=== PATIENT | male | born 1935 | race Caucasian/White ===

== ENCOUNTER 2022-02-08 13:05 | Inpatient (IN) | payer MEDICARE, OTHER ==
[~2022-02-08] VITALS: Ht 172.7 cm; Wt 89.8 kg
[~2022-02-08 13:05] MED LIST: ARICEPT5 MG PO; BUPROPION HCL100 MG PO; DOXAZOSIN MESYLA2 MG PO; FLECTOR1 EACH PO; GABAPENTIN300 MG PO; TAMSULOSIN HCL0.4 MG PO; WELLBUTRIN75 M1 PO; [UNRECOGNIZED DRUG - REMARK]
[2022-02-08] MEDS ORDERED: METRONIDAZOLE 500MG/NS 100ML 100 ML IV ONE (13:26)
[2022-02-08] MEDS ORDERED: CEFTRIAXONE 1 GM VIAL IV SCH (13:30)
[2022-02-08 13:35] LABS: BASOPHILS # (AUTO) 0.1 (0.0-0.1); BASOPHILS % 0.3 % (0.0-1.0); EOSINOPHILS # (AUTO) 0.1 (0.0-0.4); EOSINOPHILS % 0.3 % (0.0-6.0); HEMATOCRIT 30.2 % (38.2-49.6); HEMOGLOBIN 10.8 g/dL (14.0-18.0); LYMPHOCYTES # (AUTO) 0.3 (1.0-3.2); LYMPHOCYTES % 1.2 % (18.0-39.1); MEAN CORPUSCULAR HEMOGLOBIN 33.5 pg (28-32); MEAN CORPUSCULAR HGB CONC 35.8 g/dL (31-35); MEAN CORPUSCULAR VOLUME 93.8 fL (81-99); MONOCYTES # (AUTO) 0.6 (0.2-0.8); NEUTROPHILS % 91.7 % (38.7-80.0); PLATELET COUNT 430 x10e3/uL (140-360); RED BLOOD COUNT 3.22 x10e6/uL (4.3-5.7); RED CELL DISTRIBUTION WIDTH 14.1 % (11.7-14.4)
[2022-02-08] MEDS ORDERED: SODIUM CHLORIDE 0.9% 1000ML 1,000 ML IV ONE (13:45)
[2022-02-08 13:51] LABS: ALBUMIN 2.9 g/dL (3.5-5.0); ALBUMIN/GLOBULIN RATIO 0.6 (0.8-2.0); ANION GAP 18.8 mmol/L (8-16); CALCIUM 9.2 mg/dL (8.4-10.2); CREATININE, SERUM 1.96 mg/dL (0.72-1.25)
[2022-02-08 13:53] LABS: POTASSIUM 4.8 mmol/L (3.5-5.1)
[2022-02-08 14:06] LABS: CLARITY,URINE CLOUDY (CLEAR); COLOR,URINE ORANGE (YELLOW); KETONES,URINE TRACE (NEGATIVE); LEUKOCYTE ESTERASE ,URINE NEGATIVE (NEGATIVE); NITRITE,URINE NEGATIVE (NEGATIVE); PROTEIN,URINE DIPSTICK 1+ (NEGATIVE)
[2022-02-08 14:08] LABS: AMORPHOUS SEDIMENT,URINE MANY (FEW)
[2022-02-08 14:09] LABS: BACTERIA,URINE MODERATE /HPF; EPITHELIAL CELLS,URINE FEW /LPF; RBC,URINE 0-5 /HPF (0-5); WBC,URINE (MAN) 0-5 /HPF (0-5)
[2022-02-08 14:51] LABS: INR 1.16; PROTHROMBIN TIME 15.7 seconds (11.9-14.5)
[2022-02-08 14:52] LABS: PARTIAL THROMBOPLASTIN TIME 30.8 seconds (23.8-35.5)
[2022-02-08] MEDS ORDERED: IOPAMIDOL 370 MG/ML 100 ML INFUS..BTL INJ ONE (14:59)
[2022-02-08 15:56] LABS: BAND NEUTROPHILS % (MANUAL) 11 %; LYMPHOCYTES % (MANUAL) 2 % (19-48); METAMYELOCYTES % (MANUAL) 1 % (0-0); MONOCYTES % (MANUAL) 4 % (3.4-9.0); MYELOCYTES % (MANUAL) 1 % (0-0); NEUTROPHILS % (MANUAL) 81 % (40-74)
[2022-02-08 15:57] LABS: PLATELET ESTIMATE SLIGHTLY INCREASED; PLATELET MORPHOLOGY COMMENT NORMAL
[2022-02-08] MEDS ORDERED: SODIUM CHLORIDE 0.9% 1000ML 2,390 ML IV ONE (16:15)
[2022-02-08] MEDS: SODIUM CHLORIDE 0.9% 1000ML 1,000 ML IV SCH (20:05)
[2022-02-08] MEDS: Morphine 2mg Syringe 2 MG/ML SYR IV PRN (20:18)
[2022-02-08] MEDS: ONDANSETRON HCL INJ 2MG/ML 2ML 2 MG/ML VIAL IV PRN (20:19)
[2022-02-08] MEDS: METRONIDAZOLE 500MG/NS 100ML 100 ML IV SCH (22:18)
[2022-02-08] MEDS ORDERED: ACETAMINOPHEN 325 MG TAB PO PRN (23:45)
[2022-02-08] MEDS ORDERED: ACETAMINOPHEN 325 MG TAB ONE (23:53)
[2022-02-09] VITALS (7 sets, daily range): BP systolic 149–172; BP diastolic 68–92
[2022-02-09] MEDS: SODIUM CHLORIDE 0.9% 1000ML 1,000 ML IV SCH ×3 (01:45→10:19)
[2022-02-09] MEDS: Morphine 2mg Syringe 2 MG/ML SYR IV PRN (02:54)
[2022-02-09 05:24] LABS: BASOPHILS # (AUTO) 0.1 (0.0-0.1); BASOPHILS % 0.2 % (0.0-1.0); HEMATOCRIT 23.2 % (38.2-49.6); HEMOGLOBIN 8.7 g/dL (14.0-18.0); LYMPHOCYTES # (AUTO) 0.6 (1.0-3.2); MEAN CORPUSCULAR HEMOGLOBIN 36.6 pg (28-32); MEAN CORPUSCULAR HGB CONC 37.5 g/dL (31-35); MEAN CORPUSCULAR VOLUME 97.5 fL (81-99); MONOCYTES # (AUTO) 0.5 (0.2-0.8); MONOCYTES % 1.6 % (4.4-11.3); NEUTROPHILS # (AUTO) 28.7 (2.1-6.9); NEUTROPHILS % 92.1 % (38.7-80.0); PLATELET COUNT 465 x10e3/uL (140-360); RED BLOOD COUNT 2.38 x10e6/uL (4.3-5.7); RED CELL DISTRIBUTION WIDTH 14.3 % (11.7-14.4)
[2022-02-09] MEDS: METRONIDAZOLE 500MG/NS 100ML 100 ML IV SCH ×3 (05:30→23:55)
[2022-02-09 05:59] LABS: INR 1.35; PROTHROMBIN TIME 17.6 seconds (11.9-14.5)
[2022-02-09 06:00] LABS: PARTIAL THROMBOPLASTIN TIME 34.9 seconds (23.8-35.5)
[2022-02-09 06:15] LABS: ALBUMIN 2.6 g/dL (3.5-5.0); ALBUMIN/GLOBULIN RATIO 0.8 (0.8-2.0); ANION GAP 18.2 mmol/L (8-16); CALCIUM 8.3 mg/dL (8.4-10.2); CREATININE, SERUM 1.45 mg/dL (0.72-1.25); POTASSIUM 4.2 mmol/L (3.5-5.1)
[2022-02-09] MEDS: Morphine 4mg INJECTION 4 MG/ML INJ IV PRN ×2 (06:18→12:55)
[2022-02-09 08:01] LABS: BAND NEUTROPHILS % (MANUAL) 5 %; MONOCYTES % (MANUAL) 2 % (3.4-9.0); NEUTROPHILS % (MANUAL) 93 % (40-74)
[2022-02-09 08:02] LABS: PLATELET ESTIMATE ADEQUATE; RBC MORPHOLOGY COMMENT NORMAL
[2022-02-09] MEDS ORDERED: DOXAZOSIN MESYLA4 MG PO (09:44)
[2022-02-09] MEDS ORDERED: SODIUM CHLORIDE 0.9% 250ML 0 ML ONE (09:47)
[2022-02-09] MEDS: CEFTRIAXONE 2 GM in SODIUM CHLORIDE 0.9% 100 ML IV SCH (10:19)
[2022-02-09] MEDS ORDERED: GADOBENATE DIMEGLUMINE 1 ML IV ONE (12:39)
[2022-02-09] MEDS: ONDANSETRON HCL INJ 2MG/ML 2ML 2 MG/ML VIAL IV PRN (12:55)
[2022-02-09] MEDS: HYDROMORPHONE 1MG/1ML INJ IV PRN ×2 (14:59→20:40)
[2022-02-09] MEDS: ACETAMINOPHEN 325 MG TAB PO PRN (16:31)
[2022-02-10] VITALS (10 sets, daily range): BP systolic 141–159; BP diastolic 69–96
[2022-02-10] MEDS ORDERED: METRONIDAZOLE 500MG/NS 100ML 100 ML IV ONE (01:00)
[2022-02-10 01:40] LABS: % IRON SATURATION 9 % (15-50); IRON 13 ug/dL (65-175); TOTAL IRON BINDING CAPACITY 140 ug/dL (261-478); TRANSFERRIN 100 mg/dL (174-364)
[2022-02-10] MEDS: HYDROMORPHONE 1MG/1ML INJ IV PRN ×3 (02:22→17:57)
[2022-02-10] MEDS: SODIUM CHLORIDE 0.9% 1000ML 1,000 ML IV SCH ×3 (05:03→17:45)
[2022-02-10 05:49] LABS: BASOPHILS # (AUTO) 0.1 (0.0-0.1); BASOPHILS % 0.3 % (0.0-1.0); HEMATOCRIT 24.4 % (38.2-49.6); HEMOGLOBIN 8.7 g/dL (14.0-18.0); LYMPHOCYTES # (AUTO) 0.6 (1.0-3.2); LYMPHOCYTES % 2.1 % (18.0-39.1); MEAN CORPUSCULAR HEMOGLOBIN 32.7 pg (28-32); MEAN CORPUSCULAR HGB CONC 35.7 g/dL (31-35); MEAN CORPUSCULAR VOLUME 91.7 fL (81-99); MONOCYTES # (AUTO) 0.7 (0.2-0.8); MONOCYTES % 2.5 % (4.4-11.3); NEUTROPHILS # (AUTO) 25.8 (2.1-6.9); PLATELET COUNT 509 x10e3/uL (140-360); RED BLOOD COUNT 2.66 x10e6/uL (4.3-5.7); RED CELL DISTRIBUTION WIDTH 14.2 % (11.7-14.4)
[2022-02-10] MEDS: METRONIDAZOLE 500MG/NS 100ML 100 ML IV SCH ×3 (06:08→16:50)
[2022-02-10 06:25] LABS: ALBUMIN 2.8 g/dL (3.5-5.0); ALBUMIN/GLOBULIN RATIO 0.8 (0.8-2.0); ANION GAP 13.9 mmol/L (8-16); CALCIUM 8.9 mg/dL (8.4-10.2); CREATININE, SERUM 1.26 mg/dL (0.72-1.25); POTASSIUM 3.9 mmol/L (3.5-5.1)
[2022-02-10] MEDS: CEFTRIAXONE 2 GM in SODIUM CHLORIDE 0.9% 100 ML IV SCH (07:57)
[2022-02-10 08:02] LABS: ANION GAP 17.1 mmol/L (8-16); CALCIUM 8.6 mg/dL (8.4-10.2); CREATININE, SERUM 1.22 mg/dL (0.72-1.25); POTASSIUM 4.1 mmol/L (3.5-5.1)
[2022-02-10] MEDS: ACETAMINOPHEN 325 MG TAB PO PRN ×2 (08:32→16:50)
[2022-02-10 08:52] LABS: LYMPHOCYTES % (MANUAL) 1 % (19-48); MONOCYTES % (MANUAL) 1 % (3.4-9.0); NEUTROPHILS % (MANUAL) 98 % (40-74); PLATELET ESTIMATE SLIGHTLY INCREASED; PLATELET MORPHOLOGY COMMENT NORMAL; RBC MORPHOLOGY COMMENT NORMAL; TOXIC GRANULATION SLIGHT
[2022-02-10] MEDS ORDERED: MIDAZOLAM HCL 2 MG/2 ML VIAL ONE (15:22)
[2022-02-10] MEDS ORDERED: SODIUM CHLORIDE 0.9% 250ML 250 ML ONE (15:22)
[2022-02-10] MEDS ORDERED: FENTANYL CITRATE/PF 100MCG/2 ML INJ ONE (15:22)
[2022-02-10 16:22] LABS: BODY FLUID APPEARANCE TURBID; BODY FLUID TYPE LIVER ABSCESS
[2022-02-10] MEDS: MELATONIN 5 MG TABLET PO SCH (20:11)
[2022-02-11] VITALS (8 sets, daily range): BP systolic 159–179; BP diastolic 72–92
[2022-02-11] MEDS: METRONIDAZOLE 500MG/NS 100ML 100 ML IV SCH ×4 (00:16→17:44)
[2022-02-11] MEDS: HYDROMORPHONE 1MG/1ML INJ IV PRN ×4 (01:40→18:19)
[2022-02-11] MEDS: SODIUM CHLORIDE 0.9% 1000ML 1,000 ML IV SCH ×4 (04:17→18:26)
[2022-02-11 06:17] LABS: BASOPHILS # (AUTO) 0.1 (0.0-0.1); BASOPHILS % 0.3 % (0.0-1.0); EOSINOPHILS % 0.2 % (0.0-6.0); HEMATOCRIT 23.3 % (38.2-49.6); HEMOGLOBIN 8.3 g/dL (14.0-18.0); LYMPHOCYTES # (AUTO) 0.7 (1.0-3.2); LYMPHOCYTES % 3.2 % (18.0-39.1); MEAN CORPUSCULAR HEMOGLOBIN 32.9 pg (28-32); MEAN CORPUSCULAR HGB CONC 35.6 g/dL (31-35); MEAN CORPUSCULAR VOLUME 92.5 fL (81-99); MONOCYTES # (AUTO) 0.9 (0.2-0.8); MONOCYTES % 4.1 % (4.4-11.3); NEUTROPHILS # (AUTO) 18.8 (2.1-6.9); NEUTROPHILS % 86.8 % (38.7-80.0); PLATELET COUNT 540 x10e3/uL (140-360); RED BLOOD COUNT 2.52 x10e6/uL (4.3-5.7); RED CELL DISTRIBUTION WIDTH 14.6 % (11.7-14.4)
[2022-02-11 06:39] LABS: ANION GAP 14.9 mmol/L (8-16); CALCIUM 8.9 mg/dL (8.4-10.2); CREATININE, SERUM 1.09 mg/dL (0.72-1.25); POTASSIUM 3.9 mmol/L (3.5-5.1)
[2022-02-11] MEDS: CEFTRIAXONE 2 GM in SODIUM CHLORIDE 0.9% 100 ML IV SCH (09:43)
[2022-02-11 10:06] LABS: BAND NEUTROPHILS % (MANUAL) 1 %; LYMPHOCYTES % (MANUAL) 4 % (19-48); MONOCYTES % (MANUAL) 4 % (3.4-9.0); NEUTROPHILS % (MANUAL) 91 % (40-74)
[2022-02-11 10:07] LABS: PLATELET ESTIMATE SLIGHTLY INCREASED; PLATELET MORPHOLOGY COMMENT NORMAL; RBC MORPHOLOGY COMMENT NORMAL
[2022-02-11] MEDS: ACETAMINOPHEN 325 MG TAB PO PRN (17:47)
[2022-02-11] MEDS: MELATONIN 5 MG TABLET PO SCH (21:20)
[2022-02-11] MEDS: LORAZEPAM INJ 2 MG/ML VIAL IV PRN (22:09)
[2022-02-12] VITALS (7 sets, daily range): BP systolic 149–177; BP diastolic 83–96
[2022-02-12] MEDS: METRONIDAZOLE 500MG/NS 100ML 100 ML IV SCH ×4 (00:05→17:12)
[2022-02-12] MEDS ORDERED: DEXTROSE 5% 1,000 ML IV SCH (04:15)
[2022-02-12] MEDS: LORAZEPAM INJ 2 MG/ML VIAL IV PRN ×2 (04:47→19:28)
[2022-02-12 07:13] LABS: BASOPHILS # (AUTO) 0.1 (0.0-0.1); BASOPHILS % 0.5 % (0.0-1.0); EOSINOPHILS # (AUTO) 0.1 (0.0-0.4); EOSINOPHILS % 0.4 % (0.0-6.0); HEMATOCRIT 25.7 % (38.2-49.6); HEMOGLOBIN 9.1 g/dL (14.0-18.0); LYMPHOCYTES # (AUTO) 0.9 (1.0-3.2); LYMPHOCYTES % 5.1 % (18.0-39.1); MEAN CORPUSCULAR HEMOGLOBIN 32.9 pg (28-32); MEAN CORPUSCULAR HGB CONC 35.4 g/dL (31-35); MEAN CORPUSCULAR VOLUME 92.8 fL (81-99); MONOCYTES # (AUTO) 1.2 (0.2-0.8); MONOCYTES % 6.2 % (4.4-11.3); NEUTROPHILS % 81.2 % (38.7-80.0); PLATELET COUNT 625 x10e3/uL (140-360); RED BLOOD COUNT 2.77 x10e6/uL (4.3-5.7); RED CELL DISTRIBUTION WIDTH 14.9 % (11.7-14.4)
[2022-02-12 07:35] LABS: ALBUMIN 2.6 g/dL (3.5-5.0); ALBUMIN/GLOBULIN RATIO 0.7 (0.8-2.0); ANION GAP 12.8 mmol/L (8-16); CALCIUM 8.7 mg/dL (8.4-10.2); CREATININE, SERUM 0.94 mg/dL (0.72-1.25); POTASSIUM 3.8 mmol/L (3.5-5.1)
[2022-02-12] MEDS: CEFTRIAXONE 2 GM in SODIUM CHLORIDE 0.9% 100 ML IV SCH (09:34)
[2022-02-12] MEDS: HYDROMORPHONE 1MG/1ML INJ IV PRN ×3 (10:08→20:40)
[2022-02-12] MEDS ORDERED: FUROSEMIDE INJ 10 MG/ML 2 ML VIAL IV ONE (15:30)
[2022-02-12] MEDS ORDERED: METOPROLOL TARTRATE INJ 1 MG/ML VIAL IV ONE (16:15)
[2022-02-12] MEDS: MELATONIN 5 MG TABLET PO SCH (21:00)
[2022-02-13] VITALS (40 sets, daily range): BP systolic 108–188; BP diastolic 65–167
[2022-02-13] MEDS: HYDROMORPHONE 1MG/1ML INJ IV PRN ×5 (01:00→21:02)
[2022-02-13] MEDS: METRONIDAZOLE 500MG/NS 100ML 100 ML IV SCH ×4 (01:00→17:55)
[2022-02-13 06:45] LABS: BASOPHILS # (AUTO) 0.1 (0.0-0.1); BASOPHILS % 0.6 % (0.0-1.0); HEMATOCRIT 28.5 % (38.2-49.6); LYMPHOCYTES % 4.1 % (18.0-39.1); MEAN CORPUSCULAR HEMOGLOBIN 32.9 pg (28-32); MEAN CORPUSCULAR HGB CONC 35.1 g/dL (31-35); MEAN CORPUSCULAR VOLUME 93.8 fL (81-99); MONOCYTES # (AUTO) 1.2 (0.2-0.8); MONOCYTES % 4.9 % (4.4-11.3); NEUTROPHILS # (AUTO) 20.5 (2.1-6.9); PLATELET COUNT 648 x10e3/uL (140-360); RED BLOOD COUNT 3.04 x10e6/uL (4.3-5.7); RED CELL DISTRIBUTION WIDTH 15.9 % (11.7-14.4)
[2022-02-13 07:05] LABS: ALBUMIN 2.1 g/dL (3.5-5.0); ALBUMIN/GLOBULIN RATIO 0.5 (0.8-2.0); ANION GAP 15.3 mmol/L (8-16); CALCIUM 8.8 mg/dL (8.4-10.2); CREATININE, SERUM 2.14 mg/dL (0.72-1.25); POTASSIUM 3.3 mmol/L (3.5-5.1)
[2022-02-13 08:13] LABS: LYMPHOCYTES % (MANUAL) 3 % (19-48); MONOCYTES % (MANUAL) 6 % (3.4-9.0); MYELOCYTES % (MANUAL) 2 % (0-0); NEUTROPHILS % (MANUAL) 89 % (40-74); PLATELET ESTIMATE SLIGHTLY INCREASED; PLATELET MORPHOLOGY COMMENT NORMAL; RBC MORPHOLOGY COMMENT NORMAL
[2022-02-13] MEDS: CEFTRIAXONE 2 GM in SODIUM CHLORIDE 0.9% 100 ML IV SCH (08:40)
[2022-02-13] MEDS ORDERED: NYSTATIN 100,000 UNITS/GM CRM 30GM TUBE TOP PRN (10:15)
[2022-02-13] MEDS: NYSTATIN 100,000 UNITS/GM CRM 30GM TUBE TOP SCH (11:28)
[2022-02-13] MEDS ORDERED: METOPROLOL TARTRATE INJ 1 MG/ML VIAL IV ONE ×3 (11:30→18:45)
[2022-02-13] MEDS ORDERED: DIGOXIN INJ 0.25 MG/ML 2 ML AMP IV ONE (12:00)
[2022-02-13] MEDS ORDERED: AMIODARONE HCL 150 MG/100 ML BAG IV ONE (13:45)
[2022-02-13] MEDS ORDERED: AMIODARONE 900MG 500 ML IV SCH (14:00)
[2022-02-13] MEDS ORDERED: SODIUM CHLORIDE 0.45% 500 ML IV SCH (14:00)
[2022-02-13] MEDS ORDERED: AMIODARONE HCL 100 ML IV ONE (14:00)
[2022-02-13] MEDS ORDERED: MIDAZOLAM HCL 2 MG/2 ML VIAL IV STA (14:24)
[2022-02-13] MEDS ORDERED: SODIUM CHLORIDE 0.45% 1,000 ML IV ONE (15:00)
[2022-02-13 15:53] LABS: ALBUMIN/GLOBULIN RATIO 0.5 (0.8-2.0); ANION GAP 16.4 mmol/L (8-16); CALCIUM 8.5 mg/dL (8.4-10.2); CREATININE, SERUM 2.74 mg/dL (0.72-1.25); POTASSIUM 3.4 mmol/L (3.5-5.1)
[2022-02-13] MEDS: AMIODARONE 900MG 500 ML IV SCH (20:15)
[2022-02-13] MEDS: MELATONIN 5 MG TABLET PO SCH (21:00)
[2022-02-13] MEDS: ONDANSETRON HCL INJ 2MG/ML 2ML 2 MG/ML VIAL IV PRN (21:02)
[2022-02-14] VITALS (47 sets, daily range): BP systolic 116–176; BP diastolic 55–133
[2022-02-14] MEDS: METRONIDAZOLE 500MG/NS 100ML 100 ML IV SCH ×4 (00:27→17:19)
[2022-02-14] MEDS: HYDROMORPHONE 1MG/1ML INJ IV PRN ×5 (01:30→21:45)
[2022-02-14] MEDS: DEXTROSE 5% 1,000 ML IV SCH ×2 (05:04→15:00)
[2022-02-14 06:27] LABS: BASOPHILS # (AUTO) 0.1 (0.0-0.1); BASOPHILS % 0.4 % (0.0-1.0); EOSINOPHILS % 0.1 % (0.0-6.0); HEMOGLOBIN 8.9 g/dL (14.0-18.0); LYMPHOCYTES # (AUTO) 1.2 (1.0-3.2); MEAN CORPUSCULAR HEMOGLOBIN 31.6 pg (28-32); MEAN CORPUSCULAR VOLUME 95.7 fL (81-99); MONOCYTES # (AUTO) 1.2 (0.2-0.8); NEUTROPHILS # (AUTO) 19.3 (2.1-6.9); PLATELET COUNT 404 x10e3/uL (140-360); RED BLOOD COUNT 2.82 x10e6/uL (4.3-5.7)
[2022-02-14 06:51] LABS: ALBUMIN 1.9 g/dL (3.5-5.0); ALBUMIN/GLOBULIN RATIO 0.5 (0.8-2.0); ANION GAP 16.8 mmol/L (8-16); CALCIUM 8.1 mg/dL (8.4-10.2); CREATININE, SERUM 3.46 mg/dL (0.72-1.25); POTASSIUM 3.8 mmol/L (3.5-5.1)
[2022-02-14] MEDS: NYSTATIN 100,000 UNITS/GM CRM 30GM TUBE TOP SCH (09:00)
[2022-02-14] MEDS: CEFTRIAXONE 2 GM in SODIUM CHLORIDE 0.9% 100 ML IV SCH (09:35)
[2022-02-14 11:51] LABS: LYMPHOCYTES % (MANUAL) 7 % (19-48); METAMYELOCYTES % (MANUAL) 2 % (0-0); MYELOCYTES % (MANUAL) 4 % (0-0); NEUTROPHILS % (MANUAL) 87 % (40-74); PLATELET ESTIMATE ADEQUATE; PLATELET MORPHOLOGY COMMENT NORMAL; RBC MORPHOLOGY COMMENT NORMAL
[2022-02-14] MEDS: LORAZEPAM INJ 2 MG/ML VIAL IV PRN ×2 (16:25→22:37)
[2022-02-14] MEDS: DEXTROSE IV SCH (17:02)
[2022-02-14] MEDS: SODIUM BICARBONATE IV SCH (17:02)
[2022-02-14] MEDS: SOD CHL IV SCH (17:02)
[2022-02-14] MEDS: AMIODARONE 900MG 500 ML IV SCH (18:26)
[2022-02-14] MEDS: MELATONIN 5 MG TABLET PO SCH (21:00)
[2022-02-15] VITALS (62 sets, daily range): BP systolic 117–185; BP diastolic 48–108
[2022-02-15] MEDS: METRONIDAZOLE 500MG/NS 100ML 100 ML IV SCH ×4 (00:28→17:50)
[2022-02-15] MEDS: HYDROMORPHONE 1MG/1ML INJ IV PRN ×6 (02:30→23:36)
[2022-02-15] MEDS: LORAZEPAM INJ 2 MG/ML VIAL IV PRN ×4 (04:53→21:17)
[2022-02-15] MEDS: CEFTRIAXONE 2 GM in SODIUM CHLORIDE 0.9% 100 ML IV SCH (08:58)
[2022-02-15] MEDS: NYSTATIN 100,000 UNITS/GM CRM 30GM TUBE TOP SCH (09:00)
[2022-02-15] MEDS: SOD CHL IV SCH ×2 (09:02→23:35)
[2022-02-15] MEDS: SODIUM BICARBONATE IV SCH ×2 (09:02→23:35)
[2022-02-15] MEDS: DEXTROSE IV SCH ×2 (09:02→23:35)
[2022-02-15 11:33] LABS: BASOPHILS # (AUTO) 0.1 (0.0-0.1); BASOPHILS % 0.6 % (0.0-1.0); EOSINOPHILS # (AUTO) 0.2 (0.0-0.4); HEMATOCRIT 29.6 % (38.2-49.6); HEMOGLOBIN 9.4 g/dL (14.0-18.0); LYMPHOCYTES % 4.8 % (18.0-39.1); MEAN CORPUSCULAR HGB CONC 31.8 g/dL (31-35); MEAN CORPUSCULAR VOLUME 97.7 fL (81-99); MONOCYTES # (AUTO) 1.1 (0.2-0.8); NEUTROPHILS # (AUTO) 16.8 (2.1-6.9); NEUTROPHILS % 79.9 % (38.7-80.0); PLATELET COUNT 417 x10e3/uL (140-360); RED BLOOD COUNT 3.03 x10e6/uL (4.3-5.7)
[2022-02-15 11:52] LABS: ALBUMIN/GLOBULIN RATIO 0.5 (0.8-2.0); ANION GAP 15.4 mmol/L (8-16); CALCIUM 8.3 mg/dL (8.4-10.2); POTASSIUM 3.4 mmol/L (3.5-5.1)
[2022-02-15] MEDS: HYDRALAZINE HCL 20 MG/ML VIAL IV PRN ×2 (11:55→19:44)
[2022-02-15 12:13] LABS: BAND NEUTROPHILS % (MANUAL) 4 %; EOSINOPHILS % (MANUAL) 2 % (0-7); LYMPHOCYTES % (MANUAL) 11 % (19-48); METAMYELOCYTES % (MANUAL) 1 % (0-0); MONOCYTES % (MANUAL) 10 % (3.4-9.0); NEUTROPHILS % (MANUAL) 72 % (40-74); PLATELET ESTIMATE ADEQUATE; PLATELET MORPHOLOGY COMMENT NORMAL
[2022-02-15 12:21] LABS: CREATININE, SERUM 1.44 mg/dL (0.72-1.25)
[2022-02-15 15:03] LABS: ALBUMIN 1.9 g/dL (3.5-5.0); ALBUMIN/GLOBULIN RATIO 0.5 (0.8-2.0); ANION GAP 12.2 mmol/L (8-16); CALCIUM 8.2 mg/dL (8.4-10.2); CREATININE, SERUM 1.42 mg/dL (0.72-1.25); POTASSIUM 3.2 mmol/L (3.5-5.1)
[2022-02-15] MEDS: MELATONIN 5 MG TABLET PO SCH (19:24)
[2022-02-15] MEDS: AMIODARONE 900MG 500 ML IV SCH (20:15)
[2022-02-16] VITALS (67 sets, daily range): BP systolic 130–193; BP diastolic 53–159
[2022-02-16] MEDS: METRONIDAZOLE 500MG/NS 100ML 100 ML IV SCH ×3 (00:47→11:16)
[2022-02-16] MEDS: LORAZEPAM INJ 2 MG/ML VIAL IV PRN ×3 (01:45→14:07)
[2022-02-16] MEDS: HYDROMORPHONE 1MG/1ML INJ IV PRN ×3 (04:44→12:18)
[2022-02-16 06:09] LABS: BASOPHILS # (AUTO) 0.2 (0.0-0.1); BASOPHILS % 0.8 % (0.0-1.0); EOSINOPHILS # (AUTO) 0.1 (0.0-0.4); EOSINOPHILS % 0.5 % (0.0-6.0); HEMATOCRIT 28.4 % (38.2-49.6); HEMOGLOBIN 9.5 g/dL (14.0-18.0); LYMPHOCYTES % 4.4 % (18.0-39.1); MEAN CORPUSCULAR HEMOGLOBIN 32.4 pg (28-32); MEAN CORPUSCULAR HGB CONC 33.5 g/dL (31-35); MEAN CORPUSCULAR VOLUME 96.9 fL (81-99); MONOCYTES # (AUTO) 1.3 (0.2-0.8); MONOCYTES % 5.8 % (4.4-11.3); NEUTROPHILS # (AUTO) 17.9 (2.1-6.9); NEUTROPHILS % 80.7 % (38.7-80.0); PLATELET COUNT 411 x10e3/uL (140-360); RED BLOOD COUNT 2.93 x10e6/uL (4.3-5.7); RED CELL DISTRIBUTION WIDTH 18.7 % (11.7-14.4)
[2022-02-16 06:42] LABS: ALBUMIN 1.9 g/dL (3.5-5.0); ALBUMIN/GLOBULIN RATIO 0.5 (0.8-2.0); ANION GAP 15.5 mmol/L (8-16); CREATININE, SERUM 1.33 mg/dL (0.72-1.25); POTASSIUM 3.5 mmol/L (3.5-5.1)
[2022-02-16 08:04] LABS: LYMPHOCYTES % (MANUAL) 5 % (19-48); METAMYELOCYTES % (MANUAL) 2 % (0-0); MONOCYTES % (MANUAL) 2 % (3.4-9.0); MYELOCYTES % (MANUAL) 5 % (0-0); NEUTROPHILS % (MANUAL) 85 % (40-74); NUCLEATED RED BLOOD CELLS 2; PROMYELOCYTES % (MANUAL) 1 % (0-0)
[2022-02-16 08:15] LABS: PLATELET ESTIMATE ADEQUATE; PLATELET MORPHOLOGY COMMENT NORMAL; RBC MORPHOLOGY COMMENT NORMAL
[2022-02-16] MEDS: CEFTRIAXONE 2 GM in SODIUM CHLORIDE 0.9% 100 ML IV SCH (08:45)
[2022-02-16] MEDS: HYDRALAZINE HCL 20 MG/ML VIAL IV PRN ×2 (08:46→15:57)
[2022-02-16] MEDS: NYSTATIN 100,000 UNITS/GM CRM 30GM TUBE TOP SCH (08:47)
[2022-02-16] MEDS: AMIODARONE 900MG 500 ML IV SCH (11:16)
[2022-02-16] MEDS ORDERED: HYDROMORPHONE 1MG/1ML INJ IV PRN (16:45)
== END 2022-02-16 18:37 | disposition hospice, home (50) | DRG 871 ==
LOC: ER 13:22 → ERHOLD 17:46 → MED/SURG3 02-09 08:54 → ICU 02-13 13:29
PROVIDERS: ADMIT Internal Medicine; ATTEND Internal Medicine
PROC: 3E03329 Introduction of Other Anti-infective into Peripheral Vein, Percutaneous Approach (ICD-10-PCS; principal; 2022-02-08)
PROC: 0F9030Z Drainage of Liver with Drainage Device, Percutaneous Approach (ICD-10-PCS; 2022-02-10)
PROC: 5A0935A Assistance with Respiratory Ventilation, Less than 24 Consecutive Hours, High Flow/Velocity Cannula (ICD-10-PCS; 2022-02-11)
PROC: 02HV33Z Insertion of Infusion Device into Superior Vena Cava, Percutaneous Approach (ICD-10-PCS; 2022-02-13)
PROC: B548ZZA Ultrasonography of Superior Vena Cava, Guidance (ICD-10-PCS; 2022-02-13)
PROC: 0T9B70Z Drainage of Bladder with Drainage Device, Via Natural or Artificial Opening (ICD-10-PCS; 2022-02-14)
PROC: 5A0935A Assistance with Respiratory Ventilation, Less than 24 Consecutive Hours, High Flow/Velocity Cannula (ICD-10-PCS; 2022-02-15)
DX: A41.9 Sepsis, unspecified organism (principal); G93.41 Metabolic encephalopathy; N17.0 Acute kidney failure with tubular necrosis; K75.0 Abscess of liver; E87.0 Hyperosmolality and hypernatremia; I48.92 Unspecified atrial flutter; R65.20 Severe sepsis without septic shock; F03.90 Unspecified dementia, unspecified severity, without behavioral disturbance, psychotic disturbance, mood disturbance, and anxiety; G62.9 Polyneuropathy, unspecified; D63.8 Anemia in other chronic diseases classified elsewhere; L89.322 Pressure ulcer of left buttock, stage 2; L89.312 Pressure ulcer of right buttock, stage 2; I48.0 Paroxysmal atrial fibrillation; K57.30 Diverticulosis of large intestine without perforation or abscess without bleeding; N40.0 Benign prostatic hyperplasia without lower urinary tract symptoms; G47.30 Sleep apnea, unspecified; E80.6 Other disorders of bilirubin metabolism; I12.9 Hypertensive chronic kidney disease with stage 1 through stage 4 chronic kidney disease, or unspecified chronic kidney disease; N18.9 Chronic kidney disease, unspecified; R77.1 Abnormality of globulin; D72.823 Leukemoid reaction; E87.6 Hypokalemia; E78.5 Hyperlipidemia, unspecified; F41.9 Anxiety disorder, unspecified; R33.9 Retention of urine, unspecified; Z88.5 Allergy status to narcotic agent; Z66 Do not resuscitate; Z88.0 Allergy status to penicillin; G93.9 Disorder of brain, unspecified; Z51.5 Encounter for palliative care
CPT/HCPCS: 36415; 49405; 71045; 74176; 74183; 74470; 76700; 76942; 80048; 80053; 81001; 82105; 82140; 82378; 82746; 83540; 83605; 83735; 84466; 85025; 85045; 85610; 85730; 86301; 86753; 87040; 87070; 87102; 87205; 87206; 88112; 88300; 88305; 89051; 93005; 94660; 94799; 96360; 99152; 99153; 99251; 99285; C1729; C1769; J0360; J0696; J1170; J1940; J2060; J2250; J2270; J2405; J3010; J7030; J7050; J7070; Q9967